=== PATIENT | male | born 1990 ===

== ENCOUNTER 2020-09-19 06:20 | Emergency (ER) | payer SELFPAY ==
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
[2020-09-19 09:45] VITALS: BP 121/73
== END 2020-09-19 09:45 | disposition home or self-care (01) ==
LOC: ER 06:22 → EDBD 06:22 → ER 09:45
DX: M54.2 Cervicalgia (principal)
CPT/HCPCS: 70450; 72125